=== PATIENT | female | born 1940 | race Caucasian/White ===

== ENCOUNTER 2018-08-06 06:27 | Observation (INO) | payer OTHER ==
[~2018-08-06] VITALS: Ht 165.1 cm; Wt 98.0 kg
--- NOTE | ~2018-08-06 | CON ---
[address] [address] CONSULTATION Name: LATOYA CONNELL Room: [address] IN .R.#: [id number] Admission: 08/06/18 Attend Phys: Jaiden Rice MD Discharge: Date of : 36 Report #: [id number] THIS REPORT FOR: //name// CC: Jaiden Pratt DATE OF SERVICE: 08/06/2018 HISTORY OF PRESENT ILLNESS: This is an 78-year-old female patient who was evaluated by me for dizziness. The patient got up this morning, she was severely dizzy. She was nauseous. She has improved to some extent. There is some question of weakness on the leg. She is having headache following it. Headache is mostly on the left side. She indicates she never had this kind of symptoms before. She is not allergic to dye. REVIEW OF SYSTEMS: Indicate that this patient has a history of cholecystectomy, hysterectomy, diabetes, ear problem. She said she has a hole in the left ear. She denies any chest pain, respiratory difficulty, symptoms associated with this. She has long-standing history of back pain. She denies any constitutional, dermatological, hematological, psychiatric, throat or allergic symptom associated with present symptomatology. PAST MEDICAL HISTORY: Negative for this kind of dizziness. She gives poorly defined history that she may have had some dizziness before. FAMILY HISTORY: Negative for early age stroke. SOCIAL HISTORY: She denies the use of alcohol on a regular basis. PHYSICAL EXAMINATION: NEUROLOGIC: Indicate she is alert, responsive. Her speech, concentration, fund of knowledge and memory is at her baseline. Cranial nerve examination 2-12 looks unremarkable. I did not see any nystagmus. Strength, sensation, reflexes and tone looks symmetrical. No cerebellar sign was noticed. I could not have a very good look at the patient because the patient could not stand long enough. There is no meningeal sign. She is moderately obese individual who does not have any dysmorphic features of eyes, ears and face. Her vision and hearing looks adequate. EXTREMITIES: Pulses are palpable. She has no edema, cyanosis or jaundice. CARDIAC: Unremarkable. LUNGS: No respiratory difficulty or rhonchi was noticed. VITAL SIGNS: Blood pressure is 143/46, respiration is 16, pulse is 96, and temperature is 98.1. DIAGNOSTIC STUDIES: She did have a CT scan of the head, which did not show any definite abnormality. Labs indicate a normal white count [place] 6.6[place] [id number] CONSULTATION Name: LATOYA CONNELL Room: [address]#: [id number] Admission: 08/06/18 Attend Phys: Jaiden Rice MD Discharge: Date of : 36 Report #: [id number] and creatinine. IMPRESSION: The episode she has maybe ENT related. 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 Because of that, a CUFFING MACHINE OPERATOR pathology need to be excluded. I wanted her to have an MRI done, but she refused that. She said she is too claustrophobic. We talked about Valium. I gave her an opportunity to think about it and see if she wanted to do it. Subsequently, I discussed with the patient with Dr. Rice who is the admitting doctor. He informed me that the patient has decided that she will not have an MRI done. Because of that, he ordered a CT perfusion. I think the best would be do a CT angiogram of the head and neck and that would give us fairly good pictures of the blood vessel and see if any abnormality need to be corrected. I will check a sed rate in this patient. If these tests are unremarkable, then I do not think further neurological workup need to be done and the next thing will be to get the patient evaluated by an ENT physician. All of it was discussed with the patient and the family in great detail. Thank you very much for this referral. By: [id number] Kinsey MD /nt
[~2018-08-06 06:27] MED LIST: ACETAMINOPHEN325 M1 PO; ALEVE220 MG PO; ALLOPURINOL 10100 M1 PO; AMARYL2 MG PO; ASPIRIN EC325 M1 PO; ASPIRIN325 PO; CYMBALTA30 MG; CYMBALTA30 MG PO; FUROSEMIDE 80 M80 M1 PO; HYDROCODON-ACE1 EAC7 PO; K-DUR 20 MEQ T20 MEQ PO; LOSARTAN-HCTZ1 EAC1 PO; OMEPRAZOLE 20 M20 M1 PO; POTASSIUM; TOPROL XL50 MG PO; WELCHOL 625 MG625 MG PO
[2018-08-06 06:28] VITALS: BP 122/63
[2018-08-06 06:56] LABS: ABSOLUTE BASOPHILS 0.1 thou/uL (0.0-0.2); ABSOLUTE EOSINOPHILS 0.1 thou/uL (0.0-0.7); ABSOLUTE LYMPHOCYTES 2.5 thou/uL (0.8-5.3); ABSOLUTE MONOCYTES 0.6 thou/uL (0.0-1.2); ABSOLUTE NEUTROPHILS 3.4 thou/uL (1.6-8.1); BASOPHILS 0.8 %; EOSINOPHILS 1.6 %; HEMATOCRIT 36.8 % (37.0-47.0); HEMOGLOBIN 12.3 gm/dL (12.0-15.0); LYMPHOCYTES 37.7 %; MCH 30.6 pg (26.0-34.0); MCHC 33.4 g/dL (28.0-37.0); MCV 91.5 fL (80.0-100.0); MONOCYTES 9.1 %; MPV 7.7 fl. (7.2-11.1); NUCLEATED RBCS 0 /100WBC; PLATELET COUNT* 317 thou/uL (150-400); POLYS 50.8 %; RBC 4.03 mil/uL (4.20-5.00); RDW-CV 13.2 % (10.5-14.5); WBC 6.6 thou/uL (4.0-11.0)
[2018-08-06 07:06] LABS: ANION GAP 10 mmol/L (7-16); BUN 21 mg/dL (7-18); CALCIUM 9.2 mg/dL (8.5-10.1); CHLORIDE 100 mmol/L (98-107); CO2 29 mmol/L (21-32); CREATININE 0.9 mg/dL (0.6-1.3); GLUCOSE 195 mg/dL (70-99); POTASSIUM 3.6 mmol/L (3.5-5.1); SODIUM 139 mmol/L (136-145)
--- NOTE | 2018-08-06 07:07 | NUR ---
CODE STROKE ACTIVATED. SEE CODE STROKE FLOWSHEET. DR. ZHONG AT BEDSIDE.
[2018-08-06 07:12] LABS: APTT 27.5 Seconds (25.0-31.3); PROTIME 10.5 Seconds (9.20-11.50)
[2018-08-06 07:13] LABS: ALBUMIN 3.3 g/dL (3.4-5.0); ALKALINE PHOSPHATASE 65 U/L (46-116); SGOT 21 U/L (15-37); SGPT 31 U/L (30-65); TOTAL BILIRUBIN 0.3 mg/dL (<0.1-1.0); TOTAL PROTEIN 7.2 g/dL (6.4-8.2); TROPONIN-I LEVEL <0.06 ng/mL (<0.06)
--- NOTE | 2018-08-06 07:30 | NUR ---
pt refused tpa
[2018-08-06 07:44] LABS: POC CA IONIZED 4.8 mg/dL (4.5-5.3); POC CREATININE 0.7 mg/dL (0.6-1.3); POC HEMOGLOBIN 13.9 g/dL (12.0-17.0); POC POTASSIUM 3.8 mmol/L (3.5-4.9)
[2018-08-06 09:45] LABS: URINE BILIRUBIN NEGATIVE (Negative); URINE BLOOD NEGATIVE (Negative); URINE CLARITY CLEAR; URINE COLOR YELLOW; URINE GLUCOSE-RANDOM NEGATIVE (Negative); URINE KETONES NEGATIVE (Negative); URINE LEUKOCYTES 3+ (Negative); URINE NITRITE NEGATIVE (Negative); URINE PROTEIN NEGATIVE (Negative); URINE SPECIFIC GRAVITY 1.015 (1.005-1.030); URINE UROBILINOGEN 0.2 E.U./dl (0.2-1.0)
[2018-08-06 10:00] VITALS: BP 141/67
[2018-08-06 10:04] LABS: BACTERIA >30 Many /HPF (None Seen); CASTS None Seen /LPF (None Seen); CRYSTALS None Seen /LPF (None Seen); MUCUS 0-3 Light strn/LPF (None Seen); SQUAMOUS 0-3 Few /LPF (0-3); URINE RBC 0-2 Rare /HPF (0-2); URINE WBC 6-15 Few /HPF (0-5)
[2018-08-06 10:19] VITALS: BP 131/66
[2018-08-06 12:00] VITALS: BP 143/46
[2018-08-06 12:09] LABS: CHOLESTEROL 186 mg/dL (<200); HDL CHOLESTEROL 54 mg/dL (>40); LDL CHOLESTEROL 114 mg/dL (<100); TC:HDL 3.4 Ratio (Not establshd); TRIGLYCERIDE 91 mg/dL (<150); VLDL 18 mg/dL (<40)
[2018-08-06 12:16] LABS: SERUM ASSESSMENT Clear
--- NOTE | 2018-08-06 15:28 | 2DMMODE ---
[place] [address] 2 D/M-MODE ECHOCARDIOGRAM Name: LATOYA CONNELL Room: [address] IN [facility]#: [id number] Admission: 08/06/18 Attend Phys: Jaiden Rice, Discharge: Date of : 36 Date of Service: 08/06/18 1527 Report #: [id number] THIS REPORT FOR: //name// APPROVED REPORT Study performed: 08/06/2018 11:07:31 EXAM: Comprehensive 2D, Doppler, and color-flow Echocardiogram Patient Location: In-Patient Room #: 219 Status: routine BSA: 2.04 HR: 86 bpm BP: 131/66 mmHg Rhythm: NSR Other Information Study Quality: Good Indications CVA/TIA Echo Enhancing Agent Indication: Rule out Shunt Agent(s) / Amount(s) Used: Agitated Saline 10 cc 2D Dimensions IVSd: 13.38 (7-11mm) LVOT Diam: 18.40 (18-24mm) LVDd: 33.61 mm PWd: 12.76 (7-11mm) Ascending Ao: 29.67 (22-36mm) LVDs: 19.14 (25-40mm) Aortic Root: 28.18 mm Volumes Left Atrial Volume (Systole) LA ESV Index: 19.90 mL/m2 Aortic Valve AoV Peak Naveen.: 1.50 m/s AO Peak Gr.: 9.04 mmHg LVOT Max P.15 mmHg AO Mean Gr.: 5.09 mmHg LVOT Mean P.53 mmHg LVOT Max V: 1.13 m/s AO V2 VTI: 29.45 cm LVOT Mean V: 0.73 m/s DOMINGA (VTI): 2.05 cm2 LVOT V1 VTI: 22.71 [place] [address] 2 D/M-MODE ECHOCARDIOGRAM Name: KLARISSALATOYA LITTLEJOHN Jin Room: [address] IN ..#: [id number] Admission: 08/06/18 Attend Phys: Jaiden Rice, Discharge: Date of : 36 Date of Service: 08/06/18 1527 Report #: [id number] Mitral Valve E/A Ratio: 0.65 MV Decel. Time: 310.41 ms MV E Max Naveen.: 0.87 m/s MV PHT: 90.02 ms MVA (PHT): 2.44 cm2 TDI E/Lateral E': 7.91 E/Medial E': 9.67 Medial E' Naveen.: 0.09 m/s Lateral E' Naveen.: 0.11 m/s Pulmonary Valve PV Peak Naveen.: 0.96 m/s PV Peak Gr.: 3.71 mmHg Tricuspid Valve RAP Estimate: 5.00 mmHg TR Peak Gr.: 18.65 mmHg RVSP: 23.00 mmHg PA Pressure: 23.00 mmHg Left Ventricle The left ventricle is normal size. There is normal LV segmental wall motion. Mild concentric left ventricular hypertrophy. Left ventricular systolic function is normal. LVEF is 65-70%. Grade I - abnormal relaxation pattern. Right Ventricle The right ventricle is normal size. The right ventricular systolic function is normal. Atria The left atrium size is normal. Interatrial septum is intact without evidence of ASD or PFO. The right atrium size is normal. Aortic Valve Mild aortic valve sclerosis. No aortic regurgitation is present. There is no aortic valvular stenosis. Mitral Valve There is mitral annular calcification. Trace mitral regurgitation. No evidence of mitral valve stenosis. Tricuspid Valve The tricuspid valve is normal in structure. Mild tricuspid regurgitation. [place] [address] 2 D/M-MODE ECHOCARDIOGRAM Name: LATOYA CONNELL Room: [address] IN [facility]#: [id number] Admission: 08/06/18 Attend Phys: Jaiden Rice, Discharge: Date of : 36 Date of Service: 08/06/18 1527 Report #: [id number] Pulmonic Valve The pulmonary valve is normal in structure. Mild pulmonic regurgitation. Great Vessels The aortic root is normal in size. IVC is normal in size and collapses >50% with inspiration. Pericardium There is no pericardial effusion. <Conclusion> The left ventricle is normal size. Mild concentric left ventricular hypertrophy. Left ventricular systolic function is normal. LVEF is 65-70%. Grade I - abnormal relaxation pattern. Mild aortic valve sclerosis. There is no aortic valvular stenosis. Trace mitral regurgitation. Mild tricuspid regurgitation. No pulmonary hypertension. IVC is normal in size and collapses >50% with inspiration. Interatrial septum is intact without evidence of ASD or PFO. <ELECTRONICALLY SIGNED> By: Aubrey Benjamin MD, FACC 08/06/18 1527 1527 1527 Aubrey Benjamin MD, FACC /INF
[2018-08-06 16:49] VITALS: BP 124/54
--- NOTE | 2018-08-06 18:06 | EKG ---
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 : 1940 Requested By: Abimbola Barahona Order Number: [id number] MD: Aubrey Benjamin Measurements Intervals Mikana Rate: 86 P: 43 MN: 153 QRS: -8 QRSD: 87 T: 18 QT: 399 QTc: 478 Interpretive Statements Sinus rhythm Low voltage, precordial leads Abnormal R-wave progression, early transition Left ventricular hypertrophy Compared to ECG 11/06/2013 15:30:36 Low QRS voltage now present Left ventricular hypertrophy now present Sinus tachycardia no longer present Electronically Signed On 08-06-2018 18:06:36 TALENT MANAGEMENT MANAGER by Aubrey Benjamin [email or web address] <ELECTRONICALLY SIGNED> By: Aubrey Benjamin MD, FACC 08/06/18 1806 0744 0744 Aubrey Benjamin MD, FACC /EPI
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
[2018-08-06 20:06] VITALS: BP 122/53
[2018-08-07] VITALS: BP 145/77
[2018-08-07 04:00] VITALS: BP 124/62
[2018-08-07 05:30] LABS: CALCIUM 9.1 mg/dL (8.5-10.1); CREATININE 0.8 mg/dL (0.6-1.3); TOTAL BILIRUBIN 0.3 mg/dL (<0.1-1.0); TOTAL PROTEIN 6.4 g/dL (6.4-8.2)
[2018-08-07 05:31] LABS: POTASSIUM 4.8 mmol/L (3.5-5.1)
[2018-08-07 07:00] VITALS: BP 135/50
[2018-08-07 08:00] VITALS: BP 135/50
--- NOTE | 2018-08-07 08:03 | NUR ---
PT IS ABLE TO COMMUNICATE HER NEEDS TO STAFF EFECTIVELY. SHE HAS DENIED THE NEED FOR PAIN MEDICATION UP TO THIS TIME. CODE STATUS IS DNR. POSSIBLE DISCHARGE TODAY OR TOMORROW.
[2018-08-07] MEDS ORDERED: FISH OIL 1,001000 M2 PO (08:07)
[2018-08-07] MEDS ORDERED: CEFUROXIME250 MG PO (08:07)
[2018-08-07] MEDS ORDERED: ZETIA10 MG PO (08:07)
[2018-08-07] MEDS ORDERED: LIPITOR10 MG PO (08:07)
[2018-08-07] MEDS ORDERED: ASPIR 8181 MG PO (08:07)
[2018-08-07] MEDS ORDERED: ANTIVERT25 MG PO (08:12)
--- NOTE | 2018-08-07 09:09 | NUR ---
ORDER RECEIVED FOR "OT EVALUATION AND TREATMENT". SPOKE WITH RN WHO STATES THAT HE DOES NOT SEE NEED FOR EVALUATION AT THIS TIME. WILL D/C FROM OT [facility].
[2018-08-07 11:29] VITALS: BP 135/50
[2018-08-07 11:34] VITALS: BP 128/60
--- NOTE | 2018-08-07 13:20 | NUR ---
vss, assumed care in the am, assessment performed and charted, fall precautions in place and call light in reach, pt is a&o4, pt is tracing sr on the monitor, up ad suha, on ra, denies any pain, FAMILY AT BEDSIDE, PT IS TO BE D/C TODAY, PT IV AND TELE MONITOR TAKEN OFF, PT TAKEN OUT TO CAR BY WHEEL CHAIR WITH STAFF AND DTR, HOURLY ROUNDS COMPLETED,
== END 2018-08-07 13:29 | disposition home or self-care (01) ==
LOC: M.ERS 06:27 → M.TBA-ER 07:37 → M.2W 07:37
PROVIDERS: Emergency Medicine Emergency Medical Services; Personal Emergency Response Attendant; ADMIT Internal Medicine
DX: R42 Dizziness and giddiness (principal); E11.9 Type 2 diabetes mellitus without complications; I10 Essential (primary) hypertension; N39.0 Urinary tract infection, site not specified; E78.5 Hyperlipidemia, unspecified; T46.6X5A Adverse effect of antihyperlipidemic and antiarteriosclerotic drugs, initial encounter; Z79.899 Other long term (current) drug therapy